=== PATIENT | female | born 2000 | race African-American/Black ===

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

== ENCOUNTER 2022-04-03 20:16 | Emergency (ER) | payer OTHER | END 2022-04-04 01:45 | disposition home or self-care (01) | LOC: CSHERS 20:16 | DX: O26.891 Other specified pregnancy related conditions, first trimester (principal); R10.30 Lower abdominal pain, unspecified; Z3A.08 8 weeks gestation of pregnancy | CPT/HCPCS: 36415; 76856; 84702 ==